=== PATIENT | male | born 1970 | race Caucasian/White ===

== ENCOUNTER 2021-04-10 11:00 | Observation (INO) | payer OTHER ==
[~2021-04-10] VITALS: Ht 172.7 cm; Wt 102.2 kg
[2021-04-10 09:53] LABS: BASOPHILS % (AUTO) 0.6 % (0.0-5.0); EOSINOPHILS % (AUTO) 1.9 % (0.0-8.0); HEMATOCRIT 49.8 % (42-54); LYMPHOCYTES % (AUTO) 19.7 % (21.0-51.0); MEAN CORPUSCULAR HEMOGLOBIN 30.7 pg (27.0-33.0); MEAN CORPUSCULAR HGB CONC 34.5 g/dL (32.0-36.0); MEAN CORPUSCULAR VOLUME 88.9 fL (79-99); MONOCYTES % (AUTO) 8.9 % (3.0-13.0); NEUTROPHILS % (AUTO) 68.7 % (40.0-77.0); PLATELET COUNT (AUTO) 199 K/uL (130-400); RED CELL DISTRIBUTION WIDTH 12.5 % (11.0-15.5); WHITE BLOOD COUNT (AUTO) 6.4 K/uL (4.8-10.8)
[2021-04-10 10:08] LABS: APPEARANCE,URINE Clear (CLEAR); BILIRUBIN,URINE Negative (NEGATIVE); COLOR,URINE Yellow (YELLOW); GLUCOSE, URINE (UA) Negative (NEGATIVE); KETONES,URINE Negative (NEGATIVE); LEUKOCYTE ESTERASE ,URINE Negative (NEGATIVE); NITRATE,URINE Negative (NEGATIVE); OCCULT BLOOD,URINE Negative (NEGATIVE); PH,URINE 7.5 (5.0-8.0); PROTEIN,URINE Negative (NEGATIVE); UROBILINOGEN,URINE 0.2 mg/dL (0.2-1.0)
[2021-04-10 10:11] LABS: CREATININE 1.1 mg/dL (0.5-1.5); POTASSIUM 4.4 mmol/L (3.5-5.1)
[2021-04-10 10:12] LABS: INR 1.08 (0.85-1.15); PROTHROMBIN TIME 11.7 SEC (9.6-11.6)
[2021-04-10 11:31] VITALS: BP 125/81
[2021-04-11] MEDS ORDERED: MAGN250T10 PO (09:55)
[2021-04-11] MEDS ORDERED: POTASSIUM PO (09:55)
[2021-04-11] MEDS ORDERED: GARL1000 PO (09:55)
[2021-04-11] MEDS ORDERED: ZINC50TA64 PO (09:55)
[2021-04-12] VITALS (20 sets, daily range): BP systolic 126–171; BP diastolic 69–99
[2021-04-12] MEDS ORDERED: LACTATED RINGERS 1000ML 1,000 ML IV ONE (08:41)
[2021-04-12] MEDS: CEFAZOLIN SODIUM 1 GM VIAL IVP SCH ×3 (09:43→21:07)
[2021-04-12] MEDS ORDERED: ROPIVACAINE 0.5% 5MG/ML 30ML IJ ONE (13:06)
[2021-04-12] MEDS ORDERED: LIDOCAINE PF 100MG/5ML (2%) SYRINGE 5ML ONE (13:07)
[2021-04-12] MEDS ORDERED: SUCCINYLCHOLINE CHLORIDE 20 MG/ML 10 ML VIAL ONE (13:07)
[2021-04-12] MEDS ORDERED: PROPOFOL 10 MG/ML 20ML VIAL IV ONE (13:10)
[2021-04-12] MEDS ORDERED: ROCURONIUM 10MG/1ML SYR 10 MG/ML ML ONE (13:10)
[2021-04-12] MEDS ORDERED: FENTANYL CITRATE PF 50 MCG/1 ML 2ML VIAL ONE ×4 (13:11→16:10)
[2021-04-12] MEDS ORDERED: CEFAZOLIN SODIUM 1 GM VIAL ONE (13:25)
[2021-04-12] MEDS ORDERED: TRANEXAMIC ACID 1000MG/10ML ONE ×2 (13:25→16:37)
[2021-04-12] MEDS ORDERED: CEFAZOLIN SODIUM 1 GM VIAL IRRIG ONE (14:45)
[2021-04-12] MEDS ORDERED: GLYCOPYRROLATE 1 MG/5 ML SYRINGE ONE (15:59)
[2021-04-12] MEDS ORDERED: NEOSTIGMINE 5MG/5ML SYR IV ONE (15:59)
[2021-04-12] MEDS ORDERED: PHENYLEPHRINE HCL 10 MG/ML 1ML VIAL IV ONE (16:03)
[2021-04-12] MEDS ORDERED: KCL 20 MEQ ERTAB PO PRN (16:30)
[2021-04-12] MEDS ORDERED: FERROUS FUMARATE 324 MG TABLET PO PRN (16:30)
[2021-04-12] MEDS ORDERED: ACETAMINOPHEN 500 MG TABLET PO SCH (16:30)
[2021-04-12] MEDS ORDERED: POTASSIUM CHLORIDE 10% ELIXIR 20 MEQ/15 ML UDCUP PO PRN (16:30)
[2021-04-12] MEDS ORDERED: LIDOCAINE HCL-MPF 1% 2ML VIAL IV PRN (16:30)
[2021-04-12] MEDS ORDERED: KETOROLAC 15MG/ML VIAL (15MG/ML) IV PRN (16:30)
[2021-04-12] MEDS ORDERED: OXYCODONE HCL 5 MG TAB PO PRN (16:30)
[2021-04-12] MEDS ORDERED: DiphenhydrAMINE HCL 50 MG/ML VIAL IVP PRN (16:30)
[2021-04-12] MEDS ORDERED: CALCIUM CARB 500MG PO PRN (16:30)
[2021-04-12] MEDS ORDERED: TEMAZEPAM 15 MG CAPSULE PO PRN (16:30)
[2021-04-12] MEDS ORDERED: ONDANSETRON 4MG INJ IVP PRN (16:30)
[2021-04-12] MEDS ORDERED: POTASSIUM CHLORIDE 20MEQ/100ML 100 ML IV PRN (16:30)
[2021-04-12] MEDS ORDERED: TRAMADOL HCL 50 MG TABLET PO PRN (16:30)
[2021-04-12] MEDS: 0.9%NACL 1000ML 1,000 ML IV SCH ×2 (16:37→17:50)
[2021-04-12] MEDS ORDERED: MEPERIDINE-PF 25 MG/ML SYG ONE (16:50)
[2021-04-12] MEDS: OXYCODONE HCL 5 MG TAB PO PRN (17:50)
[2021-04-12] MEDS ORDERED: HYDROMORPHONE PCA 10 MG/50 ML 50 ML IV PRN (20:00)
[2021-04-12] MEDS ORDERED: DIPHENHYDRAMINE HCL 25 MG CAPSULE PO PRN (20:00)
[2021-04-12] MEDS ORDERED: 0.9%NACL 1000ML 1,000 ML IV SCH (20:00)
[2021-04-12] MEDS ORDERED: NALOXONE HCL 0.4 MG/1 ML ML IVP PRN (20:00)
[2021-04-12] MEDS: ASPIRIN 81 MG EC TAB PO SCH (20:04)
[2021-04-12] MEDS: CELECOXIB 200 MG CAP PO SCH (20:05)
[2021-04-12] MEDS: PREGABALIN 25 MG CAP PO SCH (20:05)
[2021-04-12] MEDS: FAMOTIDINE 20MG TAB PO SCH (20:05)
[2021-04-13 03:48] VITALS: BP 140/85
[2021-04-13] MEDS: 0.9%NACL 1000ML 1,000 ML IV SCH ×2 (04:41→10:49)
[2021-04-13 05:15] LABS: HEMATOCRIT 40.1 % (42-54); MEAN CORPUSCULAR HEMOGLOBIN 30.1 pg (27.0-33.0); MEAN CORPUSCULAR HGB CONC 33.9 g/dL (32.0-36.0); MEAN CORPUSCULAR VOLUME 88.7 fL (79-99); RED BLOOD CELL COUNT(AUTO) 4.52 MIL/uL (4.50-6.20); RED CELL DISTRIBUTION WIDTH 12.4 % (11.0-15.5); WHITE BLOOD COUNT (AUTO) 11.6 K/uL (4.8-10.8)
[2021-04-13 05:45] LABS: CREATININE 1.1 mg/dL (0.5-1.5)
[2021-04-13] MEDS: CEFAZOLIN SODIUM 1 GM VIAL IVP SCH (06:24)
[2021-04-13 07:49] VITALS: BP 150/94
[2021-04-13] MEDS: CELECOXIB 200 MG CAP PO SCH ×2 (08:53→21:12)
[2021-04-13] MEDS: PREGABALIN 25 MG CAP PO SCH ×2 (08:53→21:12)
[2021-04-13] MEDS: FAMOTIDINE 20MG TAB PO SCH ×2 (08:54→21:12)
[2021-04-13] MEDS: ASPIRIN 81 MG EC TAB PO SCH ×2 (08:55→21:12)
[2021-04-13] MEDS: TAMSULOSIN HCL 0.4 MG CAP.ER.24H PO SCH (09:00)
[2021-04-13] MEDS: POTASSIUM 595 MG PO SCH (09:00)
[2021-04-13] MEDS: OXYCODONE HCL 5 MG TAB PO PRN (09:01)
[2021-04-13] MEDS: POLYETHYLENE GLYCOL 3350 17 GM POWD.PACK PO SCH (09:01)
[2021-04-13 11:14] VITALS: BP 150/90
[2021-04-13] MEDS: ACETAMINOPHEN 500 MG TABLET PO SCH ×2 (14:18→21:13)
[2021-04-13 16:00] VITALS: BP 162/86
[2021-04-13 20:06] VITALS: BP 136/84
[2021-04-13 23:39] VITALS: BP 127/84
[2021-04-14 04:02] VITALS: BP 127/86
[2021-04-14] MEDS: ACETAMINOPHEN 500 MG TABLET PO SCH ×2 (06:42→14:14)
[2021-04-14 08:00] VITALS: BP 145/92
[2021-04-14] MEDS: FAMOTIDINE 20MG TAB PO SCH (08:23)
[2021-04-14] MEDS: CELECOXIB 200 MG CAP PO SCH (08:23)
[2021-04-14] MEDS: PREGABALIN 25 MG CAP PO SCH (08:23)
[2021-04-14] MEDS: ASPIRIN 81 MG EC TAB PO SCH (08:24)
[2021-04-14] MEDS: TAMSULOSIN HCL 0.4 MG CAP.ER.24H PO SCH (08:24)
[2021-04-14] MEDS: POLYETHYLENE GLYCOL 3350 17 GM POWD.PACK PO SCH (08:25)
[2021-04-14] MEDS: POTASSIUM 595 MG PO SCH (08:30)
[2021-04-14 12:00] VITALS: BP 124/78
[2021-04-14] MEDS: OXYCODONE HCL 5 MG TAB PO PRN (15:25)
[2021-04-14 16:00] VITALS: BP 124/63
[2021-04-14] MEDS ORDERED: AEC81 PO (17:34)
[2021-04-14] MEDS ORDERED: HYDR-4060 PO ×2 (17:34→17:40)
[2021-04-15] MEDS ORDERED: BISACODYL 10 MG SUPP.RECT RC PRN (16:30)
== END 2021-04-14 19:30 | disposition home health service (06) ==
LOC: EDSTATUS 11:00 → INTOOBSV 04-12 07:52 → DAHIP 04-12 07:52 → OBSVTOIN 04-12 07:52 → 4BH 04-12 17:38
PROVIDERS: ADMIT Orthopaedic Surgery; ATTEND Orthopaedic Surgery
DX: M17.31 Unilateral post-traumatic osteoarthritis, right knee (principal); Z20.822 Contact with and (suspected) exposure to COVID-19; D62 Acute posthemorrhagic anemia; I48.91 Unspecified atrial fibrillation; Z87.891 Personal history of nicotine dependence; Z79.899 Other long term (current) drug therapy
CPT/HCPCS: 27447; 36415 ×2; 80048 ×2; 81003; 85025; 85027; 85610; 87088; 87635; 87641; 96365; 96375; 96376; 97039 ×4; 97116 ×4; 97161; 97530 ×4; A4215; A4221; A4222; A4223; A4600; A4649 ×4; A4657; A4663; A4930 ×3; A9272; C1776; G0378 ×28; J0330; J0690 ×4; J1170; J1885; J2001; J2175; J2370; J2704; J2710; J2795; J3010 ×3; J3490 ×3; J7030 ×2; J7120 ×2

== ENCOUNTER 2024-01-01 05:12 | Emergency (ER) | payer BC, OTHER ==
[~2024-01-01] VITALS: Ht 172.7 cm; Wt 104.3 kg
[~2024-01-01 05:12] MED LIST: AEC81 PO; GARL10002 PO; HYDR-4060 PO; MAGN250T10 PO; POTASSIUM PO; ZINC50TA64 PO
[2024-01-01 05:39] VITALS: BP 160/99; PULSE 100; RESP 20; O2SAT 100
== END 2024-01-01 05:57 | disposition left against medical advice (07) ==
LOC: EDH 05:12
DX: D10.4 Benign neoplasm of tonsil (principal); I10 Essential (primary) hypertension; I48.91 Unspecified atrial fibrillation; Z79.82 Long term (current) use of aspirin; Z79.899 Other long term (current) drug therapy; Z98.890 Other specified postprocedural states
CPT/HCPCS: 99281